=== PATIENT | male | born 1955 | race Caucasian/White ===

== ENCOUNTER 2024-01-21 16:23 | Emergency (ER) | payer BC, SELFPAY ==
[2024-01-21 16:41] VITALS: BP 140/92
[2024-01-21 17:11] LABS: % Basophils 0.9 % (0-2); % Eosinophils 2.3 % (0-6); % Immature Granulocytes 0.3 % (0-0.5); % Lymphocytes 36.9 % (20.5-51.1); % Neutrophils 51.6 % (42.2-75.2); Absolute Basophils 0.1 10^3/uL (0-0.2); Absolute Eosinophils 0.2 10^3/uL (0-0.7); Absolute Lymphocytes 3.6 10^3/uL (1.2-3.4); Absolute Monocytes 0.8 10^3/uL (0.1-0.6); Absolute Neutrophils 5.1 10^3/uL (1.4-6.5); Hematocrit 44.7 % (39.0-52.0); Hemoglobin 15.8 g/dL (13.0-18.0); Mean Corp Hgb Conc. 35.3 g/dL (33.0-37.0); Mean Corpuscular Hgb 29.5 pg (27.0-31.0); Mean Corpuscular Volume 83.6 fL (80.0-94.0); Mean Platelet Volume 11.1 fL (7.4-10.4); Nucleated Red Blood Cells % 0 % (-); Platelet Count 273 10^3/uL (130-400); Red Blood Cell Count 5.35 10^6/uL (4.70-6.10); White Blood Cell Count 9.9 10^3/uL (4.8-10.8)
[2024-01-21 17:22] LABS: ALT (SGPT) 22 U/L (0-50); AST (SGOT) 24 U/L (17-59); Albumin 4.4 g/dl (3.5-5.0); Alkaline Phosphatase 79 U/L (38-126); Blood Urea Nitrogen 23 mg/dl (9-20); Calcium 9.9 mg/dl (8.4-10.2); Carbon Dioxide 26 mmol/L (22-30); Chloride 104 mmol/L (98-107); Glucose 93 mg/dl (70-99); Potassium 4.2 mmol/L (3.5-5.1); Sodium 135 mmol/L (135-145); Total Bilirubin 0.7 mg/dl (0.2-1.3); Total Protein 7.1 g/dl (6.3-8.2); eGFR > 60.00
[2024-01-21 17:32] LABS: Troponin I < 0.012 ng/ml
--- NOTE | 2024-01-21 20:17 | ED.GENMED ---
History of Present Illness
General
Chief Complaint: Chest Pain
Source: patient and spouse
Exam Limitations: none
Time Seen by Provider: 01/21/24 20:16
Nursing documentation reviewed up to this point in time: agreed with
Travel History
Have you had any contact with someone who has COVID-19?: No
Do you have any symptoms of coronavirus? Fever > 100 degrees, chills, cough, shortness of breath, sore throat, loss of taste or smell, muscle aches, or headache?: No
History of Present Illness
History of Present Illness:
68-year-old male presents emergency department complaining of chest pain that went to his neck and jaw. He states it was fleeting. He was driving when it occurred. This was at 3:30 PM today. He denies any pain at this time.
Past History
Past History
ED Past Medical History: None
ED Past Surgical History: Urological ([facility] kidney stone 1997)
Social History
Tobacco: Non-smoker
Personal:
Review of Systems
Review of Systems
Allergies reviewed?: Yes
All Other Systems: Not applicable
Constitutional: Reports no symptoms
EENT: Reports no symptoms
Respiratory: Reports no symptoms
Cardiac: Reports chest pain
ABD/GI: Reports no symptoms
: Reports no symptoms
Musculoskeletal: Reports no symptoms
Skin: Reports no symptoms
Neurological: Reports no symptoms
Endocrine: Reports no symptoms
Hematologic/Lymphatic: Reports no symptoms
Psychiatric: Reports no symptoms
Phy Exam
Physical Exam
Physical Exam:
Physical Exam
General: no apparent distress, not acutely ill
Neck: supple. no meningeal signs. normal posterior pharynx
Heart: s1/s2 regular rate and rhythm, no murmur. equal radial
pulses.
HEENT: Pupils equal round reactive to light, EOMI
Lungs: no acute respiratory distress. clear bilaterally
Abdomen: normal bowel sounds. not tender. no CVAT
Neuro: alert and oriented. no focal neurological deficits cranial nerves II through XII intact
Skin: no rash
Psychiatric: well kept. interactive and cooperative
Extremities: no edema. no calf tenderness. negative homans. good distal pulses
Scores
Heart Score for Chest Pain Patients
STEMI patient?: No
History: Slightly or Non-Suspicious
ECG: Normal
Age: >/= 65 years
Risk Factors: No Risk Factors
Troponin: </= Normal Limit
Heart Score for Chest Pain Patients: 2
Heart Score Risk: 2.5% MACE over next 6 weeks
Course
Orders/Labs/Results
Orders:
Orders
01/21/24 16:26
EKG [Electrocardiogram (*1)] Urgent
Reason for Study: Chest Pain
EKG- Treatment ONCE
01/21/24 16:59
CMP [Comprehensive Metabolic Panel] Urgent
Complete Blood Count/With Diff Urgent
Troponin I Urgent
01/21/24 20:32
Aspirin 325 mg PO NOW STA
01/21/24 20:42
Troponin I Urgent
Abnormal Lab Results
01/21/24
16:59
MPV 11.1 H fL
(7.4-10.4)
Absolute Lymphs (auto) 3.6 H 10^3/uL
(1.2-3.4)
Absolute Monos (auto) 0.8 H 10^3/uL
(0.1-0.6)
BUN 23 H mg/dl
(9-20)
01/21/24 16:59
01/21/24 16:59
Vital Signs
Initial and Last Documented VS:
Initial Vital Signs
Temp Pulse Resp BP Pulse Ox
98.0 F 70 16 140/92 99
01/21/24 16:41 01/21/24 16:41 01/21/24 16:41 01/21/24 16:41 01/21/24 16:41
Last Documented Vital Signs
Temp Pulse Resp BP Pulse Ox
98.0 F 80 16 122/86 95
01/21/24 16:41 01/21/24 20:45 01/21/24 16:41 01/21/24 20:45 01/21/24 20:45
MDM/Problems Addressed
Differential Diagnosis Includes:
ACS, PE
MDM/Problems Addressed:
68-year-old male with chest pain, troponin negative. No EKG findings. Patient pain-free at this time. Will discharge to follow-up with cardiology. Return precautions given.
*Pulse Oximetry
Patient hypoxic: no
*EKG
Interpreted by ED Provider?: Yes
EKG Intrepretation Date: 01/21/24
EKG Intrepretation Time: 16:29
Interpretation: normal
Comparison EKG: no changes
Heart Rate: 66
Rate: normal
Rhythm: sinus
[place]: normal axis
Interval: normal interval
QRS Pattern: normal QRS
Ischemia: no ischemia
*[place] Interpretation
Rate: normal
Interpretation: normal
Heart Rate: 82
Rhythm: sinus
*Critical Care Note
Total Time (30-74mins, 75-104mins- exclusive of procedures): Not Applicable
Patient Management
Social determinants of health affecting care: Living situation
Escalation/DeEscalation of care consider admission/obs:
admit not indicated
ED Attending Note
-
Portions of this chart may have been created with voice recognition software.� Occasional wrong word or��sound alike� substitutions may have occurred due to the inherent limitations of voice recognition software.
Discharge Plan
Departure
Patient Disposition: Home (Routine Discharge)
Date of Disposition: 01/21/24
Time of Disposition: 21:44
Patient with high blood pressure during this ER visit?: Yes
Condition: Good
Discharge Problem:
Chest pain
Instructions: Chest Pain CBC Follow Up, BLOOD PRESSURE
Prescriptions:
No Action
oxycodone-acetaminophen 5 MG/325 MG tablet
1 tab PO Q4HPRN PRN (Reason: pain) Qty: 25 0RF
Referrals:
Tristen Barnes DO [Family Provider] -
Interventions
Interventions:
*Risk Screen - Suicide Last Done: 01/21/24 16:41
*Neglect/Abuse Screening Last Done: 01/21/24 20:57
*ED COVID-19 Vaccine History Last Done: 01/21/24 16:41
ED- Cardiac Assessment Last Done: 01/21/24 20:57
[2024-01-21] MEDS: ASPIRIN 325 MG PO (20:42)
[2024-01-21 20:45] VITALS: BP 122/86
[2024-01-21 21:15] LABS: Troponin I < 0.012 ng/ml
[2024-01-21 21:56] VITALS: BP 122/84
== END 2024-01-21 22:12 | disposition home or self-care (01) ==
LOC: EMR 16:23
PROVIDERS: Student in an Organized Health Care Education/Training Program; EMERGENCY PHYSICIAN Emergency Medicine; FAMILY PHYSICIAN Internal Medicine
DX: R07.9 Chest pain, unspecified (principal); R03.0 Elevated blood-pressure reading, without diagnosis of hypertension
CPT/HCPCS: 99284; 80053; 84484; 85025; 93005

== ENCOUNTER → 2024-02-02 08:54 | Outpatient (REF) | payer BC, SELFPAY ==
[2024-02-02 10:21] LABS: HDL Cholesterol 76 mg/dl; LDL Cholesterol, Calculated 105 mg/dl; Total Cholesterol 212 mg/dl (50-199); Triglyceride 159 mg/dl (10-149); Very Low Density Lipoprotein 31 mg/dl (0-30)
[2024-02-02 10:51] LABS: PSA, Total - Diagnostic 4.57 ng/ml (0.0-4.0); TSH 1.07 uIU/ml (0.47-4.68)
[2024-02-02 11:49] LABS: Glycohemoglobin (HgbA1c) 5.8 % (4.0-5.6)
== END ==
LOC: REG 08:54
PROVIDERS: ATTENDING PHYSICIAN Internal Medicine; FAMILY PHYSICIAN Nurse Practitioner Family
DX: R07.9 Chest pain, unspecified (principal); E78.2 Mixed hyperlipidemia; Z12.5 Encounter for screening for malignant neoplasm of prostate
CPT/HCPCS: 36415; 80061; 83036; 84153; 84443

== ENCOUNTER → 2024-02-17 07:52 | Outpatient (REF) | payer BC, SELFPAY | LOC: HWRCS 07:52 | PROVIDERS: ATTENDING PHYSICIAN Internal Medicine; FAMILY PHYSICIAN Internal Medicine Geriatric Medicine | DX: R07.9 Chest pain, unspecified (principal) | CPT/HCPCS: 93306 ==

== ENCOUNTER → 2024-02-27 07:30 | Outpatient (REF) | payer BC, SELFPAY | LOC: RCS 07:30 | PROVIDERS: ATTENDING PHYSICIAN Internal Medicine; FAMILY PHYSICIAN Internal Medicine Geriatric Medicine | DX: R07.9 Chest pain, unspecified (principal) | CPT/HCPCS: 93017 ==

== ENCOUNTER → 2024-03-11 12:21 | Day surgery (SDC) | payer BC, SELFPAY ==
[2024-03-11] VITALS (14 sets, daily range): BP systolic 94–148; BP diastolic 59–93; BMI 30.7
[2024-03-11 09:52] LABS: % Basophils 1.1 % (0-2); % Eosinophils 2.2 % (0-6); % Immature Granulocytes 0.3 % (0-0.5); % Lymphocytes 38.8 % (20.5-51.1); % Neutrophils 48.6 % (42.2-75.2); Absolute Basophils 0.1 10^3/uL (0-0.2); Absolute Eosinophils 0.2 10^3/uL (0-0.7); Absolute Lymphocytes 2.8 10^3/uL (1.2-3.4); Absolute Monocytes 0.7 10^3/uL (0.1-0.6); Absolute Neutrophils 3.6 10^3/uL (1.4-6.5); Hematocrit 46.1 % (39.0-52.0); Mean Corp Hgb Conc. 34.7 g/dL (33.0-37.0); Mean Corpuscular Hgb 29.6 pg (27.0-31.0); Mean Corpuscular Volume 85.2 fL (80.0-94.0); Mean Platelet Volume 11.5 fL (7.4-10.4); Nucleated Red Blood Cells % 0 % (-); Platelet Count 260 10^3/uL (130-400); Red Blood Cell Count 5.41 10^6/uL (4.70-6.10); Red Cell Dist. Width 13.9 % (11.5-14.5); White Blood Cell Count 7.3 10^3/uL (4.8-10.8)
[2024-03-11 10:09] LABS: ALT (SGPT) 21 U/L (0-50); AST (SGOT) 21 U/L (17-59); Albumin 4.5 g/dl (3.5-5.0); Alkaline Phosphatase 62 U/L (38-126); Blood Urea Nitrogen 21 mg/dl (9-20); Carbon Dioxide 30 mmol/L (22-30); Chloride 103 mmol/L (98-107); Glucose 109 mg/dl (70-99); Potassium 4.5 mmol/L (3.5-5.1); Sodium 135 mmol/L (135-145); Total Bilirubin 0.9 mg/dl (0.2-1.3); Total Protein 6.9 g/dl (6.3-8.2); eGFR > 60.00
[2024-03-11 10:20] LABS: Troponin I < 0.012 ng/ml
--- NOTE | 2024-03-11 10:54 | ED.GENMED ---
History of Present Illness
General
Chief Complaint: Chest Pain
Time Seen by Provider: 03/11/24 09:47
Travel History
Have you had any contact with someone who has COVID-19?: No
Do you have any symptoms of coronavirus? Fever > 100 degrees, chills, cough, shortness of breath, sore throat, loss of taste or smell, muscle aches, or headache?: No
History of Present Illness
History of Present Illness:
68-year-old male presents to the emergency department for evaluation of mild left-sided chest pain that began this morning. Patient had a similar presentation of chest pain last month and followed up as an outpatient with cardiology, he underwent
an echocardiogram that was unremarkable but did have a stress test approximately 10 days ago that showed ST depressions at maximal exertion associated with pain. He was contacted 2 days ago and scheduled for routine outpatient cardiac
catheterization. Due to his new pain he presents to the ER today. Denies any shortness of breath, fever, chills, sweats, coughing, nausea, vomiting, or diarrhea.
Past History
Past History
ED Past Medical History: None
ED Past Surgical History: Urological ([facility] kidney stone 1997)
Social History
Tobacco: Non-smoker
Personal:
Review of Systems
Review of Systems
Allergies reviewed?: Yes
All Other Systems: ROS reviewed and negative except as documented in HPI and ROS
Phy Exam
Physical Exam
Physical Exam:
GEN: Well appearing, NAD, WDWN
HEENT: Oral mucosa moist, no scleral icterus
Cardiac: Regular rate and rhythm, no murmurs
Lung: No respiratory distress, no tachypnea
MSK: No gross deformity or injuries
Skin: Good color, no pallor or jaundice, no rashes
Neuro: AO x3, moves all extremities freely
Psych: Calm, cooperative
Scores
Heart Score for Chest Pain Patients
STEMI patient?: No
History: Slightly or Non-Suspicious
ECG: Normal
Age: >/= 65 years
Risk Factors: 1 or 2 Risk Factors
Troponin: </= Normal Limit
Heart Score for Chest Pain Patients: 3
Heart Score Risk: 2.5% MACE over next 6 weeks
Course
Orders/Labs/Results
Orders:
Orders
03/11/24 09:19
EKG [Electrocardiogram (*1)] Urgent
Reason for Study: Chest Pain
EKG- Treatment ONCE
03/11/24 09:36
Complete Blood Count/With Diff Urgent
Comprehensive Metabolic Panel Urgent
Troponin I Urgent
03/11/24 Lunch
Cholesterol Lowering
Cholesterol Lowering: Sodium, 2 Gram
03/11/24 11:39
Heparin 1000 Units/500 ml [Heparin] 1,000 units in 500 ml .ROUTE .STK-MED
Heparin Sodium,Porcine/Ns/Pf [Heparin 2000 Units/1000 ml] 2,000 unit in 1,000 ml .ROUTE .STK-MED
Lidocaine HCl/Pf [Xylocaine-Mpf 1% Vial] 50 mg .ROUTE .STK-MED ONE
Verapamil Injectable [Isoptin/Verapamil Injection] 5 mg .ROUTE .STK-MED ONE
03/11/24 11:40
Nitroglycerin [Tridil] 1,500 mcg .ROUTE .STK-MED ONE
03/11/24 11:51
Fentanyl Citrate/Pf [Sublimaze] 100 mcg .ROUTE .STK-MED ONE
Heparin 10,000 units .ROUTE .STK-MED ONE
Midazolam HCl [Versed] 2 mg .ROUTE .STK-MED ONE
03/11/24 12:31
Acetaminophen [Tylenol] 650 mg PO Q4HPRN PRN
Activity As Directed
Activity Level: Out of Bed- Ad Kendra
Activity Frequency: Ad Kendra
Protocol Officer Procedure As Directed
Cardiac Cath Procedure: cardiac catheterization
Notify MD As Directed
Notify physician if: immediately for chest pain or bleeding from access site(s)
Radial Artery Hemostasis Method As Directed
Instructions:: 3 mL out at 1 hour post placement of band
3 mL out at 1 1/2 hours post placement of band
3 mL out at 2 hours post placement of band
Off at 2 1/2 hours post placement of band
If any oozing or hemotoma occurs:: re-inflate band and call provider
Site Checks As Directed
Check access site for bleeding/hematoma: Yes
Comment: on arrival, Q15min x4, Q30min x2, Q1 hr x2, Q2 hr x2, Q4 hr or per
protocol
Vascular Checks As Directed
Location: distal to access site - pulse check
Frequency: Other
Comment: on arrival, Q15min x4, Q30min x2, Q1 hr x2, Q2 hr x2, Q4 hr or per protocol
Vital Signs As Directed
Frequency: Other
Additional Instructions:: on arrival, Q15min x4, Q30min x2, Q1 hr x2, Q2 hr x2, then Q4 hr or per unit
protocol
03/11/24 12:34
Discharge Patient As Directed
Discharge patient after: 330pm
03/11/24 12:45
0.9% Sodium Chloride 1000 ml [Nss] 1,000 ml IV PER PROTOCOL
Infusion rate in mL/kg/hr:: 1.5
Infusion rate in mL/hr:: 150
Duration of infusion (hours):: 3
Abnormal Lab Results
03/11/24
09:36
MPV 11.5 H fL
(7.4-10.4)
Absolute Monos (auto) 0.7 H 10^3/uL
(0.1-0.6)
BUN 21 H mg/dl
(9-20)
Glucose 109 H mg/dl
(70-99)
03/11/24 09:36
03/11/24 09:36
Vital Signs
Initial and Last Documented VS:
Initial Vital Signs
Temp Pulse Resp BP Pulse Ox
98.7 F 61 18 148/91 100
03/11/24 09:23 03/11/24 09:23 03/11/24 09:23 03/11/24 09:23 03/11/24 09:23
Last Documented Vital Signs
Temp Pulse Resp BP Pulse Ox
97.6 F 60 14 138/88 96
03/11/24 10:07 03/11/24 14:03 03/11/24 13:10 03/11/24 12:46 03/11/24 12:54
MDM/Problems Addressed
MDM/Problems Addressed:
Case was discussed with cardiology who will take the patient for cardiac catheterization due to unstable symptoms
Comment
Comment:
EKG independently interpreted by me shows a sinus bradycardia at a rate of [address] changes concerning for ischemia, QTc of 398
*Critical Care Note
Total Time (30-74mins, 75-104mins- exclusive of procedures): Not Applicable
ED Attending Note
-
Portions of this chart may have been created with voice recognition software.� Occasional wrong word or��sound alike� substitutions may have occurred due to the inherent limitations of voice recognition software.
Discharge Plan
Departure
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
Date of Disposition: 03/11/24
Time of Disposition: 11:52
Presentation/result/management discussed w/ accepting MD/DO: CardiologyLaila
Discharge Problem:
Unstable angina
Interventions
Interventions:
*Risk Screen - Suicide Last Done: 03/11/24 10:07
*General Assessment Last Done: 03/11/24 10:07
*Neglect/Abuse Screening Last Done: 03/11/24 10:07
ED- Fall Risk Assessment Last Done: 03/11/24 10:07
*ED COVID-19 Vaccine History Last Done: 03/11/24 10:07
*Nursing Disposition Last Done: 03/11/24 12:09
ED- Cardiac Assessment Last Done: 03/11/24 10:07
ED- Neurological Assessment Last Done: 03/11/24 10:07
ED Swallowing Screen Last Done: 03/11/24 10:07
Discharge Date and Time
Discharge Date/Time: 03/11/24 12:10
--- NOTE | 2024-03-11 11:10 | CON.CAR ---
Consultation
Consultation Request
Date/Time Consultation Requested: 03/11/2024, 09:19
Date/Time Consultation Performed: 03/11/2024, 11:11
Requesting Provider: Ti Shaikh M.D.
Performing Provider: Bolivar Joel D.O.
Reason for Consultation: Chest pain, abnormal stress test.
Medical History
-
Chief Complaint: Chest Pain
History of Present Illness:
68 y/o male with mild obesity and HLD who presented to the [place] ER with chest pain. 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 It is left sided and non-radiating at this time.
It is slightly different than previous. He was not exercising or exerting himself. He denies associated SOB/PAZ, palpitations, diaphoresis, nausea, vomiting, syncope or presyncope.
The patient was seen in the ER on 01/21/2024 for chest pain which he described as achy and radiating to the neck and jaw during. He ruled out for NSTEMI and was discharged to outpatient follow up. The patient was previously seen by Dr. Hui
on 01/23/2024 as a chest pain follow up from the ER. Repeat lipid panel, echo and exercise stress tests were ordered as a result of the outpatient visit. His echocardiogram was unremarkable. Treadmill stress test showed 1.[address] depression in the
inferior and lateral leads with a 'pinch' sensation in the left chest. The patient was able to exercise for 12 minutes (13 METS). EKG changes resolved by 9 minutes post exercise. He was scheduled for coronary angiography next week.
DATA:
EKG Exercise Stress Test, 02/27/2024:
INTERPRETATION:
1. The patient was exercised by the Keanu protocol completing stage 4 for 12 minutes achieving 13 METS.
2. The exercise ECG was positive for ischemia with 1.[address] depression in leads II, III and aVF and 1.[address] depression in leads V4-V6 that resolved in recovery by 9 minutes.
3. The blood pressure response was normal.
4. There was no arrhythmia during the study.
5. The exercise tolerance was well above average.
6. Symptomatology - mild superficial 'pinch' left pectoral at peak that quickly subsided. I did not label this as angina.
7. This is a moderate risk stress test (DTS = 4.5).
TTE, 02/17/2024:
CONCLUSIONS
Normal biventricular size and systolic function without regional wall motion abnormality.
No significant valvular disease.
No prior study available for comparison.
Past Medical History
Past Medical History: Hypercholesterolemia
Social History
Tobacco: Non-Smoker
Alcohol: Occasional
Drug: None
Family History
Family History: Reviewed & Not Pertinent
Allergies / Home Medications
Allergy/AdvReac Type Severity Reaction Status Date / Time
No Known Allergies Allergy Verified 03/11/24 09:23
�Medication �Instructions �Recorded �Confirmed �Type
aspirin 81 mg capsule,delayed 81 mg PO DAILY 03/11/24 03/11/24 History
release
Review of Systems
-
History Source: Patient
All other systems: Negative unless noted
Constitutional: No Symptoms
EENT: No Symptoms
Respiratory: No Symptoms
Cardiac: Chest Pain
Abdomen/GI: No Symptoms
: No Symptoms
Musculoskeletal: No Symptoms
Physical Exam
Vital Signs
Temp Pulse Resp BP Pulse Ox
36.4 C 61 17 134/80 100
03/11/24 10:07 03/11/24 11:02 03/11/24 11:02 03/11/24 10:28 03/11/24 10:45
Lab Results
03/11/24 09:36
03/11/24 09:36
Troponin I < 0.012 ng/ml 03/11/24 09:36
Physical Exam
General: Well Developed, Well Nourished, No Apparent Distress and Comfortable
HEENT: Normocephalic, Anicteric and Moist Mucous Membranes
Respiratory: Clear and Non Labored Respirations
Cardiac: S1/S2 and Regular Rhythm
Breast: Deferred by me
GI: Soft, Non Tender, Non Distended and Normal Bowel Sounds
Rectal: Deferred by Provider
Musculoskeletal: No Clubbing, No Cyanosis and No Edema
Skin: Warm and Dry
Neuro: AO x 3
Hematologic/Lymphatic: No Lymphadenopathy
Psych: Calm
Impression / Plan
-
68 y/o male with glucose intolerance and HLD presenting with a second episode of chest discomfort and abnormal exercise stress test.
#Chest Pain/Abnormal Stress Test
-Moderate risk study.
-Given recurrent chest discomfort and upcoming catheterization, it is reasonable to expedite his coronary angiography and clarify his coronary anatomy.
-NPO for cath today.
#Glucose Intolerance
-Chronic, stable.
-HbA1c = 5.8% on outpatient labs.
#HLD
-Chronic, stable.
-Total cholesterol = 212, LDL = 105, HDL = 76, Triglycerides = 159.
-ASCVD 10 year risk = 13.3%.
-Start atorvastatin 20 mg daily.
#Dispo
-Observation status.
-Coronary angiography today.
Data Reviewed
-
EKG: Tracing Personally Visualized and interpreted and Report Reviewed by me
Medical Tests (Nuc Med, Echo etc): Image Personally Visualized and interpreted and Report Reviewed by me
Labs: Labs Reviewed by me, Discussed with Physician and Discussed with Patient
Old Records: Reviewed
--- NOTE | 2024-03-11 11:47 | EDRN ---
Marlena CHAVEZ from the color laboratory technician called this RN and verbal report was given, veneer production machine operator currently at the pts bedside speaking with the pt and the pts
--- NOTE | 2024-03-11 13:03 | ITS.CL.CATH ---
[facility] - Catheterization
Cardiac Catheterization
Procedure Report:
CARDIAC CATHETERIZATION REPORT
Date of Procedure: 03/11/2020
Referring: Ramos Hui M.D., [facility] emergency room.
INDICATION: Unstable angina, abnormal stress test.
PROCEDURE:
1. Left heart catheterization.
2. Coronary angiography.
ACCESS:
6 [place] right radial artery.
CATHETERS:
1. 5 [place] JR4.
2. 5 [place] JL 3.5.
HEMODYNAMIC DATA
Weight (kg): 99.3
AO (s/d/x, mmHg): 118/80/98
LV (s/x mmHg): 120/12
LEFT VENTRICULOGRAPHY: Not performed.
CORONARY ANGIOGRAPHY
Dominance: Right.
Left Main: Normal size, trifurcating vessel. There is no coronary artery disease.
LAD: Large size giving rise to a single diagonal. There are luminal irregularities. Flow within the distal vessel is borderline without epicardial obstruction.
Ramus: Normal size vessel supplying the majority of the anterolateral wall. There is no coronary artery disease
Circumflex: Normal size, nondominant vessel giving rise to a single obtuse marginal. There is no coronary artery disease.
RCA: Large size, dominant vessel with a significant posterolateral branch. There is no coronary artery disease.
INTERVENTION(S)
None.
Closure Device: Vascular band.
Radiation (mGy): 322.69
DAP (cm2.Gy): 20.59
Fluoroscopy time (minutes): 1.4
Sedation time (minutes): 50
CONCLUSIONS
1. Right dominant circulation with mild luminal irregularities in the LAD. There is borderline reduced flow rate in the distal LAD without epicardial obstruction. This may be consistent with endothelial dysfunction.
2. Normal filling pressures (LVEDP = 12 mmHg at 99.3 kg).
RECOMMENDATIONS:
1. Expectant management after cardiac catheterization via right radial approach.
2. Limited weight bearing on the right wrist for one week.
3. Primary prevention with moderate dose-dose, high potency statin.
4. Stable for outpatient follow-up with primary public relations manager.
Copy to: Ramos Hui M.D., Lenin Silver M.D.
Bolivar Joel DO, FACC, FACP
== END | disposition home or self-care (01) ==
LOC: EMR 09:17 → CATH 12:21
PROVIDERS: ATTENDING PHYSICIAN Internal Medicine Cardiovascular Disease; EMERGENCY PHYSICIAN Emergency Medicine; FAMILY PHYSICIAN Internal Medicine Geriatric Medicine
DX: R07.9 Chest pain, unspecified (principal); E66.9 Obesity, unspecified; R94.39 Abnormal result of other cardiovascular function study; E78.5 Hyperlipidemia, unspecified
CPT/HCPCS: 99152; 99153; 80053; 84484; 85025; 93005; 93458; 99284; C1894; Q9967

== ENCOUNTER → 2024-05-31 09:39 | Outpatient (REF) | payer BC, SELFPAY ==
[2024-06-01 10:53] LABS: PSA Total 4.1 ng/mL (0.0-4.0)
== END ==
LOC: REG 09:39
PROVIDERS: ATTENDING PHYSICIAN Internal Medicine Geriatric Medicine
DX: R97.20 Elevated prostate specific antigen [PSA] (principal)
CPT/HCPCS: 36415; 84153; 84154

== ENCOUNTER → 2025-01-03 14:50 | Outpatient (REF) | payer MEDICARE, OTHER, SELFPAY ==
[2025-01-05 17:44] LABS: PSA Total 4.9 ng/mL (0.0-4.0)
== END ==
LOC: REG 14:50
PROVIDERS: ATTENDING PHYSICIAN Internal Medicine Geriatric Medicine
DX: R97.20 Elevated prostate specific antigen [PSA] (principal)
CPT/HCPCS: 36415; 84153; 84154

== ENCOUNTER → 2025-07-11 19:50 | Outpatient (REF) | payer MEDICARE, OTHER, SELFPAY | LOC: MRI 3T 19:50 | PROVIDERS: ATTENDING PHYSICIAN Nurse Practitioner Family | DX: M54.50 Low back pain, unspecified (principal) | CPT/HCPCS: 72158; A9575 ==

== ENCOUNTER → 2025-09-09 18:27 | Outpatient (REF) | payer MEDICARE, OTHER, SELFPAY | LOC: MRI 3T 18:27 | PROVIDERS: ATTENDING PHYSICIAN Urology; FAMILY PHYSICIAN Nurse Practitioner Family | DX: R97.20 Elevated prostate specific antigen [PSA] (principal) | CPT/HCPCS: 72197; A9575 ==

== ENCOUNTER → 2025-10-24 13:13 | Outpatient (REF) | payer MEDICARE, OTHER, SELFPAY | LOC: REG 13:13 | PROVIDERS: ATTENDING PHYSICIAN Internal Medicine Geriatric Medicine | DX: R97.20 Elevated prostate specific antigen [PSA] (principal) | CPT/HCPCS: 36415; 84153; 84154 ==

== ENCOUNTER → 2025-11-15 14:32 | Outpatient (REF) | payer MEDICARE, OTHER, SELFPAY | LOC: CLAB 14:32 | PROVIDERS: ATTENDING PHYSICIAN Urology | DX: R97.20 Elevated prostate specific antigen [PSA] (principal) | CPT/HCPCS: 88305 ==